=== PATIENT | female | born 1950 | race Caucasian/White ===

== ENCOUNTER → 2021-12-06 13:58 | Outpatient (CLI) | payer OTHER, SELFPAY ==
--- NOTE | ~2021-12-06 | MR_ITS ---
EXAMINATION: MR brain/brain stem wo/w con DATE: 12/06/2021 14:50 INDICATION: Seizure-like activity. TECHNIQUE: Magnetic resonance imaging (MRI) of the brain and brainstem was performed without and with 12 mL MultiHance intravenous contrast. COMPARISON: None. FINDINGS: There are scattered areas of nonspecific increased T2-weighted signal intensity in the cere bral white matter, which is within normal limits for the patient's age. There is no intracranial hemo rrhage, acute infarction, or abnormal intracranial mass lesion. The ventricles are normal in size. Th ere is mild mucosal thickening in the paranasal sinuses. The orbits are normal. The mastoid air cells are normal. IMPRESSION: 1. Normal aging brain. Reviewed, dictated and finalized at location A. IMPRESSION: 1. Normal aging brain.
== END ==
PROVIDERS: PCP Family Medicine; Visit Provider Physician Assistant
DX: R56.9 Unspecified convulsions (principal)
CPT/HCPCS: 70553; A9577

== ENCOUNTER 2021-12-08 06:41 | Outpatient (CLI) | payer OTHER, SELFPAY ==
--- NOTE | 2021-12-08 12:19 | WPDNEUROLOGY ---
Neurology EEG Report General Information Date of Study: 12/08/21 TEST eeg DIAGNOSIS seizure-like activity CONDITION OF RECORDING awake and drowsy but patient unable to relax eye movements and talking artifacts noted throughout the tracing EEG NUMBER [id number] CLINICAL HISTORY patient states for the last few months she has been having episodes of spacing out the last a few seconds up to a minute feels fine before and after. EEG DESCRIPTION Background rhythm consists of low-voltage 8 to 10 hertz per 2nd alpha admixed with low-voltage 15 to 18 hertz per 2nd beta. Bilateral symmetrical activity seen during sleep. Multiple artifacts are noted throughout the tracing. Photic stimulation produced normal driving. Hyperventilation not done. Non paroxysmal. Nonfocal. Nonlateralizing. IMPRESSION No significant abnormalities noted
== END 2021-12-08 06:42 | disposition home or self-care (01) ==
LOC: ANHNEURO 06:44
PROVIDERS: PCP Family Medicine; Visit Provider Physician Assistant
DX: R56.9 Unspecified convulsions (principal)
CPT/HCPCS: 95816